=== PATIENT | male | born 1960 | race Caucasian/White ===

== ENCOUNTER 2016-06-13 17:18 | Inpatient (IN) | payer BC ==
--- NOTE | ~2016-06-13 | CR72 ---
[facility] A Service of [facility] & [facility] RADIOLOGY TEXT RESULTS PATIENT: ALONA SANTACRUZ LOCATION: [facility] 230-01 : 61 UNIT #: [id number] AGE: [address]: Tomy Lee MD SEX: M ORDER DR: [id number] [facility] [address] [facility]. [place], [place] [address] [id number] I MR#: [id number] Acc #: [id number] NAME: ALONA SANTACRUZ : 1960 SEX: M STUDY DATE/TIME: 06/15/2016 5:02 UNIT: [facility] ROOM: [facility] STUDY DESCRIPTION: CR Chest Single View Portable Attending Physician: Tomy Lee M.D. Ordering Physician: Tomy Lee M.D. Primary Care Physician: Tg Galicia M.D. MEDICAL IMAGING REPORT This report is preliminary unless electronic signature is present EXAM Portable AP view of the chest COMPARISON June 14, 2016, June 13, 2016. INDICATION 55-year-old male with dyspnea for 2 days. Admitted with urosepsis. FINDINGS/IMPRESSION No pneumothorax, pleural effusion or pulmonary edema. No evidence of focal airspace disease. Cardiomediastinal silhouette is within normal limits. Dictated by... Alona Ma M.D. THIS IS AN ELECTRONICALLY VERIFIED REPORT Alona Ma M.D. at 06/19/2016 12:33 PM ALMAZ/tay TD: 06/15/2016 09:42 JOB #: [id number] MEDICAL IMAGING REPORT COPY
--- NOTE | ~2016-06-13 | CT4 ---
[facility] A Service of [facility] RADIOLOGY TEXT RESULTS PATIENT: ALONA SANTACRUZ LOCATION: [facility] CICCU2-02 : 62 UNIT #: [id number] AGE: [address]: Tomy Lee MD SEX: M ORDER DR: [id number] [id number] [place], [place] [address] [id number] I MR#: [id number] Acc #: [id number] NAME: ALONA SANTACRUZ : 1960 SEX: M STUDY DATE/TIME: 06/13/2016 18:00 UNIT: [facility] ROOM: [id number] STUDY DESCRIPTION: CT Abd and Pelv Wo Cont Attending Physician: Tomy Lee M.D. Ordering Physician: [place] M.D. Primary Care Physician: Tg Galicia M.D. MEDICAL IMAGING REPORT This report is preliminary unless electronic signature is present EXAM CT abdomen and pelvis without contrast 06/13/2016 HISTORY Uncontrollable cold chills and shaking. Pain with urination. Diagnosed with prostate infection. Back pain onset last night. History of prostate cancer. COMPARISON None. TECHNIQUE 3 mm noncontrast axial images through the abdomen and pelvis. Enteric contrast was not administered. This CT exam was performed with one or more of the following radiation dose reduction techniques: automatic exposure control, adjustment of mA and/or kV according to patient size, and iterative reconstruction. FINDINGS ABDOMEN: No urinary tract stone or hydronephrosis is seen. Lung bases appear free of consolidation. The liver, gallbladder, spleen, pancreas, adrenals and kidneys have an unremarkable noncontrast appearance. Tiny umbilical hernia contains only fat. The appendix is normal. No pathologically enlarged lymph nodes are appreciated. PELVIS: There is ill-defined stranding surrounding the prostate gland and urinary bladder which may represent focal inflammatory change of each of these structures. Surgical clips or implants are seen within the prostate gland which appears mildly enlarged. No drainable fluid collection or abscess is seen. Rectum is within normal limits. [facility] RESULTS PATIENT: ALONA SANTACRUZ LOCATION: [facility] CICCU2-02 : 62 UNIT #: [id number] AGE: [address]: Tomy Lee MD SEX: M ORDER DR: No acute or suspicious osseous lesions. Probable tiny benign bone islands within the L4 and T12 vertebra. Small benign Schmorl node protrusions in the inferior endplates of L3 and L4. IMPRESSION 1. Ill-defined inflammatory-type stranding surrounding the prostate gland and urinary bladder may represent acute inflammation or infection of each of these structures. 2. Mildly enlarged prostate gland with surgical clips or radiation implants within it. 3. No acute findings elsewhere in the abdomen and pelvis. No pathologic adenopathy is seen. Appendix is normal. Dictated by... Surekha Espinosa M.D. THIS IS AN ELECTRONICALLY VERIFIED REPORT Surekha Espinosa M.D. at 06/14/2016 2:42 PM CHIP/alma TD: 06/13/2016 23:02 JOB #: [id number] MEDICAL IMAGING REPORT COPY
--- NOTE | ~2016-06-13 | CR72 ---
[facility] A Service of [facility] & [facility] RADIOLOGY TEXT RESULTS PATIENT: ALONA SANTACRUZ LOCATION: [facility] CICCU05-17 : 62 UNIT #: [id number] AGE: [address]: Tomy Lee MD SEX: M ORDER DR: [id number] [facility] [address] [facility]. [place], [place] [address] [id number] I MR#: [id number] Acc #: [id number] NAME: ALONA SANTACRUZ : 1960 SEX: M STUDY DATE/TIME: 06/13/2016 17:05 UNIT: [facility] ROOM: 84855 STUDY DESCRIPTION: CR Chest Single View Portable Attending Physician: Tomy Lee M.D. Ordering Physician: [place] M.D. Primary Care Physician: Tg Galicia M.D. MEDICAL IMAGING REPORT This report is preliminary unless electronic signature is present EXAM AP portable chest DATE 06/13/2016 at 17:05 HISTORY Fever, chills, dizziness, shortness of breath today. COMPARISON None. FINDINGS A single AP portable view of the chest shows both lungs to be clear. The heart is normal in size. The mediastinal contour is normal. No significant bone abnormalities are seen. IMPRESSION Normal portable chest. Dictated by... Surekha Espinosa M.D. THIS IS AN ELECTRONICALLY VERIFIED REPORT Surekha Espinosa M.D. at 06/14/2016 2:42 PM [facility] TD: 06/13/2016 22:18 JOB #: [id number] MEDICAL IMAGING REPORT COPY
--- NOTE | ~2016-06-13 | DS ---
Unit #: [id number] #: [id number] Patient: ALONA SANTACRUZ [id number] [address] [place], [place] [address] [id number] I MR#: [id number] NAME: ALONA SANTACRUZ ROOM: 230 Age: 56 Sex: M Admission Date: 06/13/2016 : 1960 Discharge Date: 06/18/2016 Attending Physician: Tomy Lee M.D. Primary Care Physician: Tg Galicia M.D. DISCHARGE SUMMARY DISCHARGE DIAGNOSES 1. Escherichia coli sepsis. 2. Escherichia coli urinary tract infection. 3. Prostate cancer. 4. Thrombocytopenia, resolved. DISCHARGE MEDICATIONS Rocephin 1 gram IV daily through 06/26/16. HOSPITAL COURSE This 55-year-old white male, with history of prostate cancer, underwent marker placement on 06/11 for radiation therapy. About 36 hours later he developed fever, chills, dysuria, tachycardia and hypotension. He presented to the emergency room, was treated with IV fluids and meropenem. He did not require vasoactive pressors. Blood cultures grew E-coli sensitive to Rocephin, cefuroxime, Zosyn and tobramycin. This was not ESBL according to microbiology report. Antibiotics were changed to Rocephin. ID consult was requested to determine length of antibiotics and if he could be changed to anything oral. They recommended Rocephin 1 gram IV daily through 06/26/16. Of note, at the time of admission, his white blood cell count was 5,700, and his platelet count was 127,000; it fell to a low of 69,000, but by discharge it was 194,000. His hematocrit was initially 43, but by discharge with hydration, etc., it was 37.4. His BMP was fairly unremarkable. Coagulation studies were normal. He has been afebrile with adequate blood pressure. Urology has ordered a bilateral lower extremity venous Doppler study, and it showed no evidence of DVT or SVT. He will be discharged home on Rocephin to follow up with urology and Dr. Galicia. Dictated by... Tomy Lee M.D. HARLEY/johanna TD: 06/20/2016 07:53 JOB #: [id number] Unit #: [id number] #: [id number] Patient: ALONA SANTACRUZ DISCHARGE SUMMARY X Tomy Lee MD X DISCHARGE SUMMARY
--- NOTE | ~2016-06-13 | HP ---
Unit #: [id number] #: [id number] Patient: ALONA SANTACRUZ [id number] [address] [place], [place] [address] [id number] I MR#: [id number] NAME: ALONA SANTACRUZ ROOM: [facility] Age: 55 Sex: M Admission Date: 06/13/2016 : 1960 Attending Physician: Tomy Lee M.D. Primary Care Physician: Tg Galicia M.D. HISTORY AND PHYSICAL HISTORY OF PRESENT ILLNESS The patient is a 55-year-old white male who has a history of Michael 7 prostate cancer, who recently had marker placement on 06/11/2016 for radiation therapy. He developed fever and chills and presented to the emergency room. His initial blood pressure was 159/90, pulse was 138, respiratory rate was 16, temperature was 100.8. His blood pressure fell in the 70s. He was resuscitated with fluid, approximately five liters. Currently his blood pressure is 114/70, pulse 101, respiratory rate 16-18 and temperature 98.8. Currently his blood cultures are growing two sets of Gram negative rods. Urine culture is also growing Gram negative rods. His BMP was remarkable for a creatinine of 1.0, sodium 133, potassium 3.6. Total bilirubin was 1.8. AST, ALT and alkaline phosphatase were 72, 78 and 102 respectively. Lactic acid level was initially 1.4 and then 2.4. Coagulation studies were normal. Fibrinogen was 585. White blood cell count was 5,700 initially and currently it is 13,000. Hematocrit was 43 and currently is 36.8. Platelet count was 127 and currently it is 78. Influenza was negative. Urinalysis, white cells and red cells, 3+ blood, leukocyte esterase 3+. PAST MEDICAL HISTORY Prostate cancer. PAST SURGICAL HISTORY None except for marker placements. SOCIAL HISTORY The patient works for a [employer] company. He drinks 12 drinks per week. Does smoke tobacco. . FAMILY HISTORY Unremarkable. ALLERGIES No known drug allergies. CURRENT MEDICATIONS Prilosec. REVIEW OF SYSTEMS CONSTITUTIONAL: Has had fevers, chills. HEENT: Some rhinorrhea, nasal congestion, post nasal drip. SLEEP: Does have a history of loud snoring. has moved out of the bedroom. He is restless in bed and notes apneic episodes. He admits to excessive daytime sleepiness. Unit #: [id number] #: [id number] Patient: ALONA SANTACRUZ PULMONARY: Denies shortness of breath. CARDIAC: No chest pain or palpitations. GI: No nausea or vomiting. : As noted. ENDOCRINE: No polyuria or polydipsia. HEMATOLOGIC: No easy bruising or bleeding. SKIN: No rash. NEUROLOGIC: No unilateral weakness, numbness or seizures. He does have pain and aches all over, but normally does not. PHYSICAL EXAMINATION GENERAL: White male, currently in no distress. VITALS: Blood pressure 114/70, pulse 101, respiratory rate 18, temperature 98.8. HEENT: Normocephalic, atraumatic. Pupils equal, round and reactive. Sclerae nonicteric. Nasal passages patent. Posterior pharynx clear. Mallampati 4. Somewhat dry mucous membranes. NECK: Thick, supple, collar size about 17.5. Trachea midline. No cervical or supraclavicular lymphadenopathy. LUNGS: Clear to auscultation and percussion. HEART: Regular rate and rhythm. Could not appreciate murmur, rub or gallop. ABDOMEN: Nontender. Bowel sounds present. No hepatosplenomegaly. EXTREMITIES: Without clubbing, cyanosis or edema. Pulses 2+. NEUROLOGIC: Awake, alert and oriented times three. Cranial nerves intact. Muscle strength symmetric bilaterally. Affect calm. SKIN: Warm and dry. DIAGNOSTIC STUDIES IMAGING: Chest x-ray no infiltrate, mass or congestion. CT of the abdomen and pelvis shows nothing major in the abdomen or pelvis, other than some stranding around the prostate gland and urinary bladder. Mildly enlarged prostate gland. Surgical clips or radiation implants within it. LABORATORY: As noted. ASSESSMENT 1. Gram negative rods. 2. Septic shock secondary to Gram negative erich urinary tract infection. 3. Prostate cancer, status post marker placement. 4. Thrombocytopenia. Likely secondary to sepsis. PLAN Fluid resuscitation. Pressors as needed. Broad spectrum antibiotics for Gram negative erich urinary tract infection. DVT prophylaxis. Other recommendations pending this. Dictated by Sandy Coffman TD: 06/14/2016 09:54 JOB #: [id number] CC: Tg Galicia M.D. Unit #: [id number] #: [id number] Patient: ALONA SANTACRUZ HISTORY AND PHYSICAL X Tomy Lee MD X HISTORY AND PHYSICAL
--- NOTE | ~2016-06-13 | CR72 ---
[facility] A Service of [facility] & [facility] RADIOLOGY TEXT RESULTS PATIENT: ALONA SANTACRUZ LOCATION: [address]17 : [birth year] UNIT #: [id number] AGE: [address]: Tomy Lee MD SEX: M ORDER DR: [id number] [facility] [address] [place], [place] [address] [id number] I MR#: [id number] Acc #: [id number] NAME: ALONA SANTACRUZ : 1960 SEX: M STUDY DATE/TIME: 06/14/2016 7:08 UNIT: [facility] ROOM: [facility] STUDY DESCRIPTION: CR Chest Single View Portable Attending Physician: Tomy Lee M.D. Ordering Physician: Yaz Yao D.O. Primary Care Physician: Tg Galicia M.D. MEDICAL IMAGING REPORT This report is preliminary unless electronic signature is present EXAM Portable chest 06/14/2016 INDICATION Fever, chills, dizziness, shortness of air for 1 day. COMPARISON 06/13/2016. FINDINGS A portable view of the chest was obtained. The heart size and vascularity are normal. The lungs are clear. The bones are unremarkable. IMPRESSION No active disease. Dictated by... Anand Page M.D. THIS IS AN ELECTRONICALLY VERIFIED REPORT Anand Page M.D. at 06/14/2016 10:06 AM ISABELLA/tay TD: 06/14/2016 08:39 JOB #: [id number] MEDICAL IMAGING REPORT COPY
--- NOTE | ~2016-06-13 | CO ---
Unit #: [id number] #: [id number] Patient: ALONA SANTACRUZ [id number] [address] [place], [place] [address] [id number] I MR#: [id number] NAME: ALONA SANTACRUZ ROOM: [facility] Age: 55 Sex: M Admission Date: 06/13/2016 : 1960 Attending Physician: Tomy Lee M.D. Primary Care Physician: Tg Galicia M.D. Consultation Date: 06/14/2016 CONSULTATION REPORT REASON FOR CONSULTATION Urosepsis after fiducial marker placement. HISTORY OF PRESENT ILLNESS Patient is a 55-year-old male who has Michael 7 prostate cancer. He has elected for radiation therapy. He underwent fiducial marker placement by my partner, Dr. Solis, on 06/11/2016. He initially did well, but began developing fevers of 101 on Saturday evening. He presented to the emergency room yesterday febrile and hypotensive. He is admitted for further management. PAST MEDICAL HISTORY Prostate cancer. PAST SURGICAL HISTORY None. MEDICATIONS AT HOME Include Prilosec. ALLERGIES None. SOCIAL HISTORY Positive for alcohol, approximately 12 drinks a week per his questioning. Patient is and here with his . Positive for tobacco. REVIEW OF SYSTEMS Positive fever. Positive for chills. PHYSICAL EXAMINATION VITAL SIGNS: T. max. 101, current temperature 98.8, blood pressure 85/55, pulse 88, and respirations 18. GENERAL: The patient is a somewhat ill-appearing, white male in no acute distress. HEENT: Normocephalic and atraumatic. LUNGS: Patient is breathing comfortably. ABDOMEN: Soft, nontender, and nondistended. : Placed a Tsai catheter and got return of clear urine. EXTREMITIES: No clubbing, cyanosis, or edema. DIAGNOSTIC STUDIES LABORATORY: White blood cell count 13,000 and hemoglobin 12. Creatinine 1.1. Urine culture is pending. Blood cultures, preliminary, are growing Unit #: [id number] #: [id number] Patient: ALONA SANTACRUZ gram-negative rods. IMAGING: CT scan of the abdomen and pelvis from 06/13/2016 was reviewed and revealed normal upper tracts. ASSESSMENT AND PLAN Urosepsis after prostate fiducial marker placement. We will continue resuscitation with IV fluids. Will follow cultures. He has been started on antibiotics. He will be on meropenem. The ICU team has admitted him and we have been consulted. We will follow along. We appreciate the opportunity to participate in his care. Dictated by... Chaka Mauricio M.D. JOSELINE/mehran TD: 06/14/2016 07:59 JOB #: [id number] CONSULTATION REPORT X Chaka Mauricio MD X CONSULTATION REPORT
--- NOTE | ~2016-06-13 | EKG ---
PATIENT: ALONA SANTACRUZ UNIT #: [id number] Ventricular Rate: 128 BPM Atrial Rate: 128 BPM P-R Interval: 132 ms QRS Duration: 96 ms Q-T Interval: 296 ms QTC Calculation(Bezet): 432 ms P [place]: 67 degrees Calculated R [place]: 63 degrees Calculated T [place]: 58 degrees Diagnosis Line: Sinus tachycardia Diagnosis Line: Otherwise normal ECG Diagnosis Line: Diagnosis Line: Confirmed by CLINT WEEKS MD ([id number]) on 06/14/2016 Diagnosis Line: 6:22:46 PM INTERPRETING MD: DESI ORTEGA
--- NOTE | ~2016-06-13 | CO ---
Unit #: [id number] #: [id number] Patient: ALONA SANTACRUZ [id number] [address] [place], [place] [address] [id number] I MR#: [id number] NAME: ALONA SANTACRUZ ROOM: 230 Age: 55 Sex: M Admission Date: 06/13/2016 : 1960 Attending Physician: Tomy Lee M.D. Primary Care Physician: Tg Galicia M.D. Consultation Date: 06/15/2016 CONSULTATION REPORT REQUESTING PHYSICIAN Dr. Lee. REASON FOR CONSULTATION Antibiotic recommendation for E. coli sepsis. HISTORY OF PRESENT ILLNESS Alona Jason is a 55-year-old male with a history of prostate cancer, who underwent marker placement on 06/11 of radiation therapy. About 36 hours later, he developed fevers, chills, and dysuria with tachycardia, and hypotension. He was given IV fluids and was started on meropenem, subsequently blood culture grew gram-negative rods. Urine culture grew E. coli susceptible to ceftriaxone. It is not ESBL according to microbiology report. Antibiotics were changed to later ceftriaxone. ID was consulted for antibiotic recommendations. The patient is currently stable. He has improved significantly and is getting ready to leave the ICU to go to regular floor. He has no fever or chills. Now, he has no dysuria and is ambulating. ID of gram-negative erich in the blood is still pending, but the urine culture did grow E. coli susceptible to ceftriaxone. The patient does not have any port or a central line. 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 PAST MEDICAL HISTORY Generally unremarkable except for prostate cancer, which is being treated with radiation therapy shortly. PAST SURGICAL HISTORY Recent radiation marker placement. CURRENT MEDICATIONS Pyridium, Lovenox, pantoprazole, Rocephin, he did get meropenem for 24 hours or so. ALLERGIES None. PERSONAL HISTORY He works in the [employer]. He drinks about 12 drinks a week. No history of smoking or drug use. He is . FAMILY HISTORY Negative. Unit #: [id number] #: [id number] Patient: ALONA SANTACRUZ SYSTEMIC REVIEW On admission, he had mild dysuria, fever, chills, hypotension, tachycardia. Without any abdominal pain. At the current time, he is completely asymptomatic and his 12 point systemic review was negative. PHYSICAL EXAMINATION GENERAL: Reveals a young white male, who is awake and alert, in no acute distress. He is fully conscious and oriented to time, place, and person. VITAL SIGNS: Temperature is 98.6, heart rate 85, respirations 20, blood pressure 90/88, his T-max was 100.8 on admission and lowest blood pressure was 73/59. His peripheral IV site is clean. HEENT: Unremarkable. NECK: Supple. There is no JVD or edema. LUNGS: Clear. HEART: Sounds normal. ABDOMEN: Grossly obese, soft, and nontender. There is no rebound or guarding. Bowel sounds are normal. There is no CVA angle tenderness. NEUROLOGIC: Nonfocal. DIAGNOSTIC STUDIES IMAGING STUDIES: Chest x-ray shows no focal airspace disease. CT of the abdomen and pelvis shows stranding around the prostate gland and urinary bladder. Mildly enlarged prostate with surgical clips. LABORATORY RESULTS: Blood culture, gram-negative rods. ID is pending. Urine culture, E. coli susceptible to ceftriaxone. It is not ESBL positive. Sodium is 135, potassium 3.5, chloride 110, CO2 of 21, BUN 13, creatinine 0.9. AST 20, ALT 41, alkaline phosphatase 58, albumin 2.5, bilirubin 0.6. White count today is 13, hemoglobin 12.5, platelets 69, neutrophils 90%. Lactic acid was 1.4. Influenza screen was negative. Urinalysis showed pyuria, hematuria, leukocyte esterase, and proteinuria. IMPRESSION Escherichia coli sepsis most likely related to prostate radiation marker placement leading to urinary tract infection and Escherichia coli bacteremia. Isolate if not extended-spectrum beta-lactamase positive and the patient is not responding to meropenem followed by ceftriaxone. RECOMMENDATIONS I will recommend ceftriaxone 1 g daily until 06/26/2016 to complete 2 weeks course. I will recommend IV, since the patient is immunocompromised and there is no reliable oral antibiotic choice at this time. This was discussed with the patient. We will place a midline and try to arrange for IV ceftriaxone at home. No isolation is needed at this time. I will also repeat blood cultures to document clearance of bacteremia. Dictated by... Sandy Yan/radha TD: 06/16/2016 01:53 JOB #: [id number] Unit #: [id number] #: [id number] Patient: ALONA SANTACRUZ CONSULTATION REPORT X Abhijeet Johnson MD CONSULTATION REPORT
--- NOTE | ~2016-06-13 | US84 ---
[address] [facility] [address] [facility]. [place], [place] [address] [id number] I MR#: [id number] Acc #: [id number] NAME: ALONA SANTACRUZ : 1960 SEX: M STUDY DATE/TIME: 06/18/2016 9:52 UNIT: C2A ROOM: 230 STUDY DESCRIPTION: US LE Veins Complete Jonnie Stdy Attending Physician: Tomy Lee M.D. Ordering Physician: Rolan Burt M.D. Primary Care Physician: Tg Galicia M.D. MEDICAL IMAGING REPORT This report is preliminary unless electronic signature is present EXAM Bilateral lower extremity venous ultrasound, 06/18/2016. HISTORY Bilateral lower extremity swelling, worse times 2 days. No history of DVT, SVT. FINDINGS TECHNIQUE Venous ultrasound examination of both lower extremities was performed using grayscale, spectral Doppler and color flow Doppler imaging. FINDINGS The examination is negative. There is no evidence of deep venous thrombus from the groin to the lower calf bilaterally. Visualized greater saphenous veins are also patent. IMPRESSION Negative examination. No evidence of lower extremity deep venous thrombosis. Dictated by... Darrin Dietz M.D. THIS IS AN ELECTRONICALLY VERIFIED REPORT Darrin Dietz M.D. at 06/19/2016 5:24 PM HALLE/otis TD: 06/18/2016 16:16 JOB #: [id number] MEDICAL IMAGING REPORT COPY
[2016-06-13 17:40] LABS: LYMPHOCYTE# 0.1 X10e3 (1.0-3.5); LYMPHOCYTE% 2.5 % (17.0-45.0); MEAN CELL VOLUME 92.5 FL (83-96); MEAN CORPUSCULAR HEMOGLOBIN 32.3 PG (28-34); MEAN CORPUSCULAR HGB CONC 34.9 g/dL (30-36); MEAN PLATELET VOLUME 8.7 FL (6.5-11.5); MONOCYTE# 0.1 X10e3 (0-1.0); MONOCYTE% 1.2 % (3.0-12.0); NEUTROPHIL# 5.5 X10e3 (1.5-7.1); NEUTROPHIL% 96.3 % (40-75); PLATELET COUNT 127 X10e3 (140-420); RED BLOOD COUNT 4.65 X10e (3.90-5.60); RED CELL DISTRIBUTION WIDTH 13.4 % (11.0-15.5); WHITE BLOOD COUNT 5.7 X10e3 (4.0-10.5)
[2016-06-13 17:51] LABS: POC - CKMB <1.0 ng/mL (0.0-7.9); POC - TROPONIN <0.05 ng/mL (<=0.05)
[2016-06-13 17:54] LABS: DIFF IND NO
[2016-06-13 18:07] LABS: ALBUMIN SERUM 3.9 g/dL (3.5-5.0); ALKALINE PHOSPHATASE 102 U/L (32-92); ALT (SGPT) 78 U/L (10-40); AST (SGOT) 72 U/L (10-42); BILIRUBIN, DIRECT 0.6 mg/dL (0.0-0.2); BILIRUBIN,INDIRECT 1.2 mg/dL (0.0-0.9); BILIRUBIN,TOTAL 1.8 mg/dL (0.2-2.0); BLOOD UREA NITROGEN 15 mg/dL (9-23); CALCIUM SERUM 8.8 mg/dL (8.4-10.2); CARBON DIOXIDE 23 mmol/L (22-31); CHLORIDE 103 mmol/L (100-111); GLOM FILT RATE Estimated ABOVE60 mL/min (>60); GLUCOSE FASTING 120 mg/dL (70-110); POTASSIUM 3.3 mmol/L (3.5-5.1); PROTEIN TOTAL SERUM 6.7 g/dL (6.0-8.3); SODIUM 133 mmol/L (135-145)
[2016-06-13 18:19] LABS: INR 1.1; PARTIAL THROMBOPLASTIN TIME 29.4 SECONDS (23.5-31.3)
[2016-06-13 18:31] LABS: URINE SOURCE CLEAN CATCH
[2016-06-13 18:32] LABS: URINE APPEARANCE CLOUDY; URINE BILIRUBIN NEG (NEG); URINE BLOOD 3+ (NEG); URINE COLOR DK YELLOW; URINE GLUCOSE NEG (NEG); URINE KETONE 1+ (NEG); URINE LEUKOCYTE ESTERASE 3+ (NEG); URINE NITRATE NEG (NEG); URINE PH 5.5 (5-8); URINE PROTEIN 1+ (NEG)
[2016-06-13 18:34] LABS: CULTURE INDICATED? YES; URBCS1 AUWI 50-100 /[HPF] (0-2); URINE BACTERIA AUWI 1+ (NEGATIVE); URINE SQUAMOUS EPITHELIAL CELL NONE SEEN /[HPF]; UWBCS1 AUWI 100-200 (0-5)
[2016-06-13 19:30] LABS: INFLUENZA A NEG (NEG); INFLUENZA B NEG (NEG)
[2016-06-14 05:01] LABS: BLOOD UREA NITROGEN 15 mg/dL (9-23); BUN/CREATININE RATIO 13.63; CALCIUM SERUM 7.2 mg/dL (8.4-10.2); CARBON DIOXIDE 19 mmol/L (22-31); CHLORIDE 107 mmol/L (100-111); CREATININE SERUM 1.1 mg/dL (0.6-1.4); GLOM FILT RATE Estimated ABOVE60 mL/min (>60); GLUCOSE FASTING 140 mg/dL (70-110); POTASSIUM 3.6 mmol/L (3.5-5.1); SODIUM 133 mmol/L (135-145)
[2016-06-14 05:25] LABS: EOSINOPHIL% 0.2 % (0.0-7.0); HEMATOCRIT 36.8 % (38.0-50.0); LYMPHOCYTE# 0.2 X10e3 (1.0-3.5); LYMPHOCYTE% 1.9 % (17.0-45.0); MEAN CELL VOLUME 94.3 FL (83-96); MEAN CORPUSCULAR HEMOGLOBIN 30.8 PG (28-34); MEAN CORPUSCULAR HGB CONC 32.7 g/dL (30-36); MEAN PLATELET VOLUME 9.2 FL (6.5-11.5); MONOCYTE# 0.6 X10e3 (0-1.0); MONOCYTE% 4.4 % (3.0-12.0); NEUTROPHIL# 12.1 X10e3 (1.5-7.1); NEUTROPHIL% 93.5 % (40-75); RED BLOOD COUNT 3.91 X10e (3.90-5.60); RED CELL DISTRIBUTION WIDTH 13.5 % (11.0-15.5)
[2016-06-14 05:26] LABS: PLATELET COUNT 78 X10e3 (140-420)
[2016-06-14 05:28] LABS: DIFF IND NO
[2016-06-15 04:22] LABS: BASOPHIL% 0.2 % (0-2.5); EOSINOPHIL# 0.2 X10e3 (0-0.7); EOSINOPHIL% 1.4 % (0.0-7.0); HEMATOCRIT 36.3 % (38.0-50.0); HEMOGLOBIN 12.2 gm/dL (13.0-16.0); LYMPHOCYTE# 0.5 X10e3 (1.0-3.5); LYMPHOCYTE% 4.2 % (17.0-45.0); MEAN CELL VOLUME 93.9 FL (83-96); MEAN CORPUSCULAR HEMOGLOBIN 31.5 PG (28-34); MEAN CORPUSCULAR HGB CONC 33.5 g/dL (30-36); MEAN PLATELET VOLUME 9.5 FL (6.5-11.5); MONOCYTE# 0.5 X10e3 (0-1.0); NEUTROPHIL# 11.7 X10e3 (1.5-7.1); NEUTROPHIL% 90.2 % (40-75); RED BLOOD COUNT 3.86 X10e (3.90-5.60); RED CELL DISTRIBUTION WIDTH 13.3 % (11.0-15.5)
[2016-06-15 04:36] LABS: DIFF IND YES; PLATELET COUNT 69 X10e3 (140-420)
[2016-06-15 04:39] LABS: PLATELET ESTIMATE DECREASED (NORMAL); RBC NORMAL YES
[2016-06-15 04:53] LABS: ALBUMIN SERUM 2.5 g/dL (3.5-5.0); ALKALINE PHOSPHATASE 58 U/L (32-92); ALT (SGPT) 41 U/L (10-40); AST (SGOT) 20 U/L (10-42); BILIRUBIN,TOTAL 0.6 mg/dL (0.2-2.0); BLOOD UREA NITROGEN 13 mg/dL (9-23); BUN/CREATININE RATIO 14.44; CALCIUM SERUM 7.3 mg/dL (8.4-10.2); CARBON DIOXIDE 21 mmol/L (22-31); CHLORIDE 110 mmol/L (100-111); CREATININE SERUM 0.9 mg/dL (0.6-1.4); GLOM FILT RATE Estimated ABOVE60 mL/min (>60); GLUCOSE FASTING 113 mg/dL (70-110); POTASSIUM 3.5 mmol/L (3.5-5.1); PROTEIN TOTAL SERUM 5.2 g/dL (6.0-8.3); SODIUM 135 mmol/L (135-145)
[2016-06-18 06:53] LABS: HEMATOCRIT 37.4 % (38.0-50.0); HEMOGLOBIN 12.6 gm/dL (13.0-16.0); MEAN CELL VOLUME 92.7 FL (83-96); MEAN CORPUSCULAR HEMOGLOBIN 31.3 PG (28-34); MEAN CORPUSCULAR HGB CONC 33.8 g/dL (30-36); RED BLOOD COUNT 4.03 X10e (3.90-5.60); RED CELL DISTRIBUTION WIDTH 13.8 % (11.0-15.5); WHITE BLOOD COUNT 7.8 X10e3 (4.0-10.5)
[2016-06-18 07:20] LABS: BLOOD UREA NITROGEN 11 mg/dL (9-23); BUN/CREATININE RATIO 18.33; CALCIUM SERUM 8.4 mg/dL (8.4-10.2); CARBON DIOXIDE 29 mmol/L (22-31); CHLORIDE 105 mmol/L (100-111); CREATININE SERUM 0.6 mg/dL (0.6-1.4); GLOM FILT RATE Estimated ABOVE60 mL/min (>60); GLUCOSE FASTING 104 mg/dL (70-110); POTASSIUM 4.1 mmol/L (3.5-5.1); SODIUM 140 mmol/L (135-145)
[2016-06-18] MEDS ORDERED: ACETAMINOPHEN650 M1 PO (13:26)
[2016-06-18] MEDS ORDERED: CEFTRIAXONE1 GM IV (13:27)
== END 2016-06-18 15:44 | disposition home health service (06) | DRG 862 ==
LOC: CED 17:18 → CEDOF 21:00 → CICCU2 06-14 01:47 → C2A 06-15 15:40
PROVIDERS: Emergency Medicine; Internal Medicine
PROC: 05H533Z Insertion of Infusion Device into Right Subclavian Vein, Percutaneous Approach (ICD-10-PCS; principal; 2016-06-15)
PROC: B546ZZA Ultrasonography of Right Subclavian Vein, Guidance (ICD-10-PCS; 2016-06-15)
DX: T81.4XXA Infection following a procedure, initial encounter (principal); A41.51 Sepsis due to Escherichia coli [E. coli]; R65.21 Severe sepsis with septic shock; N39.0 Urinary tract infection, site not specified; C61 Malignant neoplasm of prostate; D69.6 Thrombocytopenia, unspecified
CPT/HCPCS: 71010; 74176; 80048; 80053; 80076; 81003; 82553; 83605; 84484; 85025; 85027; 85384; 85610; 85730; 87040; 87077; 87086; 87088; 87186; 87804; 93005; 93970; 99291; J0696; J1650; J2185; J2270; J3370